=== PATIENT | female | born 1990 | race African-American/Black ===

== ENCOUNTER 2021-10-31 19:27 | Emergency (ER) | payer OTHER, SELFPAY | END 2021-10-31 20:06 | disposition home or self-care (01) | LOC: MADERS 19:27 | DX: S16.1XXA Strain of muscle, fascia and tendon at neck level, initial encounter (principal); M54.6 Pain in thoracic spine; I10 Essential (primary) hypertension; E03.9 Hypothyroidism, unspecified; J45.909 Unspecified asthma, uncomplicated; E66.9 Obesity, unspecified; V43.52XA Car driver injured in collision with other type car in traffic accident, initial encounter; Z68.45 Body mass index [BMI] 70 or greater, adult; Z79.899 Other long term (current) drug therapy | CPT/HCPCS: 99283 ==